=== PATIENT | female | born 1980 | race Caucasian/White ===

== ENCOUNTER 2016-12-19 08:36 | Inpatient (IN) | payer BC ==
--- NOTE | 2016-12-17 12:55 | HP ---
Admitting History and Physical - Primary Care Physician PCP: Nelson Chauhan - Admission Chief Complaint: high risk for breast cancer History of Present Illness: 36 yo female presents as a high risk patient for breast cancer sec to family hx and BRCA 1 and 2 positive results. Patient is presenting for bilateral mastectomy with immediate implant reconstruction. MRI and mammo done 10/2016 was normal. History Source: Patient Limitations to Obtaining History: No Limitations - Past Surgical History Past Surgical History: Yes: Breast Biopsy (left breast core bx 2013 (neg)) Home Medications - Allergies Allergies/Adverse Reactions: Allergies Allergy/AdvReac Type Severity Reaction Status Date / Time acetaminophen [From Endocet] Allergy Verified 12/17/16 12:51 oxycodone HCl [From Endocet] Allergy Verified 12/17/16 12:51 - Home Medications Home Medications (free text): MVI. probiotic. adrenal cortex (karmen). HPA axis (sinan). stress B complex (karmen). melatonin Family Disease History - Family Disease History Family Disease History: CA: Father (prostate cancer) Other Family History: maternal great GM-uterine cancer. maternal great aunt x 2 -ovarian cancer. maternal GM breast cancer. maternal aunt-breast cancer. maternal cousin-breast cancer,BRCA positive. paternal uncle- pancreatic cancer. paternal uncle- bladder cancer Physical Examination Constitutional: Yes: Well Nourished Breast(s): Yes: Other (bilateral breast without palpable masses or suspicious adenopathy noted) Problem List - Problems (1) Genetic susceptibility to breast cancer Code(s): Z15.01 - GENETIC SUSCEPTIBILITY TO MALIGNANT NEOPLASM OF BREAST (2) Family history of breast cancer Code(s): Z80.3 - FAMILY HISTORY OF MALIGNANT NEOPLASM OF BREAST (3) Family history of ovarian cancer Code(s): Z80.41 - FAMILY HISTORY OF MALIGNANT NEOPLASM OF OVARY Assessment/Plan Plan: bilateral mastectomy with implant reconstruction
[2016-12-17 17:32] VITALS: BMI 27.1
[2016-12-19] MEDS ORDERED: ceFAZolin SODIUM 1 GM VIAL ONE ×3 (08:39→14:43)
[2016-12-19] MEDS ORDERED: GENTAMICIN SO4 80 MG/2 ML VIAL ONE (08:39)
[2016-12-19] MEDS ORDERED: LIDOCAINE 1%-EPI 1:100,000 30 ML MDV IJ ONE (08:39)
[2016-12-19] MEDS ORDERED: GUM MASTIC/STORAX/MSAL/ALCOHOL 1 DRP DROPSBTL MC ONE (09:15)
[2016-12-19] MEDS ORDERED: SCOPOLAMINE HYDROBROMIDE 1 PATCH PATCH.TD72 ONE (09:43)
[2016-12-19] MEDS ORDERED: MIDAZOLAM HCL 2 MG/2 ML SINGLE DOSE VIAL ONE (09:43)
[2016-12-19] MEDS ORDERED: SEVOFLURANE 250 ML BTL ONE (09:53)
[2016-12-19] MEDS ORDERED: DESFLURANE GAS 240 ML BOTTLE IH ONE (09:53)
[2016-12-19] MEDS ORDERED: ACETAMINOPHEN INJECTION 100 ML IVPB ONE (09:53)
[2016-12-19] MEDS ORDERED: PROPOFOL 20 ML ONE ×8 (09:55→12:07)
[2016-12-19] MEDS ORDERED: ROCURONIUM BROMIDE 50 MG/5 ML VIAL ONE (09:56)
[2016-12-19] MEDS ORDERED: ONDANSETRON 4 MG/2 ML VIAL ONE (10:00)
[2016-12-19] MEDS ORDERED: DEXAMETHASONE SOD PHOSPHATE 4 MG/1 ML VIAL ONE (10:00)
[2016-12-19] MEDS ORDERED: MINERAL OIL/PETROLATUM,WHITE 3.5 GM TUBE ONE (10:07)
[2016-12-19] MEDS ORDERED: HYDROmorphone *PCA* 10MG/50ML DISP.SYRIN PCA ONE ×2 (10:28→15:29)
[2016-12-19] MEDS ORDERED: ACETAMINOPHEN 325 MG TABLET (FP) PO PRN (13:00)
[2016-12-19] MEDS ORDERED: ZOLPIDEM TARTRATE 5 MG TABLET PO PRN (13:00)
[2016-12-19] MEDS ORDERED: ONDANSETRON 4 MG/2 ML VIAL IVPB PRN (13:00)
--- NOTE | 2016-12-19 13:57 | OP ---
DATE OF OPERATION: 12/19/2016 PREOPERATIVE DIAGNOSIS: High risk for breast cancer, BRCA1 and BRCA2 positive. POSTOPERATIVE DIAGNOSIS: High risk for breast cancer, BRCA1 and BRCA2 positive. PROCEDURE: Bilateral total nipple-sparing mastectomies done through an inframammary incision with bilateral direct implant reconstruction placed over the muscle with AlloDerm. ANESTHESIA: General endotracheal anesthesia. PRIMARY SURGEON: Phyllis Chauhan MD MANAGER PART: GLEN Guallpa PRIMARY SURGEON FOR THE BILATERAL DIRECT IMPLANT RECONSTRUCTION: Phyllis Barry MD MANAGER PART: Marquita COMPLICATIONS: There were no complications. INDICATIONS: Briefly, the patient is a 36-year-old premenopausal white female with [place], [place], [place], and [place] heritage. She has a strong family history with her maternal grandmother who had bilateral breast cancer at age 35 and 62. She has a maternal aunt who had breast cancer at age 46. She has a maternal cousin who had breast cancer at age 33. She has 2 maternal great-aunts who had ovarian cancer in their 30s. A maternal great-grandmother had uterine cancer in her 50s. A paternal uncle had pancreatic cancer at age 45. Her father had prostate cancer. The patient ended up genetic testing and had both a BRCA1 and BRCA2 deleterious mutation. She was seen in consultation regarding bilateral nipple-sparing mastectomies for risk reduction. She understood the theoretical risk of leaving soft tissue underneath the nipple, but understood that we do retroareolar biopsy, and if those showed cancer, we would remove the nipples. She understood the lack of any evidence drawn from doing prophylactic sentinel lymph node biopsies. She was seen by Dr. Barry, our plastic surgeon, and she agreed to direct implant reconstruction and chose to have the implants placed on top of the muscle. DESCRIPTION OF PROCEDURE: The patient was brought in for the surgery on December 19, 2016. In the holding area, site verification was made, and informed consent was obtained. She was marked preoperatively by the plastic surgeon. She did sign consent for the nipple-sparing registry. She was brought into the operating room and laid on the OR table in the supine position. Venodynes were placed on the lower extremities prior to induction. She received 2 g of Ancef prior to incision. She was given general endotracheal anesthesia. Both breasts were sterilely prepped and draped in the usual fashion. Inframammary incisions were marked out bilaterally, about 9 cm in length and inframammary folds symmetrically bilaterally. The left mastectomy was first performed. Incision was made, and the skin edges were everted, and the breast was retracted inferiorly using Luc clamps. The flap was raised using the PEAK radiofrequency device superiorly to the level of the clavicle, medially to the level of the sternum, laterally to the level of the latissimus, and inferiorly to the level of the inframammary fold. The breast was taken down off the pectoralis major muscle using electrocautery from inferomedial to superolateral, completely removed intact. It was oriented with the long-lateral short-superior suture and weighed to allow for appropriate cosmetic result. Skin flaps were trimmed for good cosmetic result. A retroareolar biopsy was taken underneath the left nipple areolar complex and came back negative, so the left nipple was spared. Hemostasis was achieved, and the wound was copiously irrigated. At this point, the right mastectomy was performed again through an inframammary approach about 9 cm in length. The skin edges were everted, and the breast tissue retracted inferiorly using Thedford clamps. The skin flap was raised using the PEAK radiofrequency device superiorly to the level of the clavicle, medially to the level of the sternum, laterally to the level of the latissimus, and inferiorly above the level of the inframammary fold. The breast was taken down off the pectoralis major muscle using electrocautery from inferomedial to superolateral and completely removed intact. It was oriented with the long-lateral short-superior suture and weighed to allow for appropriate cosmetic result. Skin flaps were trimmed again for good cosmetic result. A retroareolar biopsy was taken underneath the right nipple areolar complex, sent for frozen section, and came back negative, so the right nipple was spared, as well. The wound was copiously irrigated, and hemostasis was achieved. At this point, Dr. Barry became the primary surgeon and performed bilateral direct implant reconstruction above the muscle. AlloDerm was used to cover the implants bilaterally. Two Dalton drains were placed around each implant, brought through separate stab incisions on the lateral skin flaps, and secured in place using 3-0 nylon suture. All wounds were closed separately by plastic surgery using interrupted 3-0 deep dermal PDS suture and a running 4-0 subcuticular PDS suture. Mastisol and Steri-Strips were tied over the wounds, and she will be placed in a surgical bra postoperatively. The patient will be extubated and brought to the post-anesthesia care unit. She will be placed on a WIRE WEAVER CLOTH for postoperative pain control. She will be admitted postoperatively for pain and wound management. All sponge and needle counts were correct at the end of the case. Estimated blood loss was about 150 mL. She was hemodynamically stable throughout. We did use the SPY Skin Perfusion Device at the end of the mastectomies and after the reconstructions, and she had good perfusion seen on the SPY intraoperative skin angiography. PHYLLIS CHAUHAN M.D. [id number]
[2016-12-19] MEDS ORDERED: ceFAZolin SODIUM 1 GM VIAL IVPB ONE (14:55)
[2016-12-19] MEDS: CEFAZOLIN 1 GM/D5W 50 ML IVPB SCH ×2 (17:00→20:48)
[2016-12-19] MEDS: DEXTROSE 5%-0.45% SALINE 1,000 ML IV SCH (17:00)
[2016-12-19] MEDS: HYDROmorphone *PCA* 10MG/50ML DISP.SYRIN PCA SCH (17:00)
[2016-12-20] MEDS: CEFAZOLIN 1 GM/D5W 50 ML IVPB SCH ×4 (02:08→21:14)
[2016-12-20 08:44] LABS: MCHC 32.5 g/dl (32.0-36.0); MEAN CELL VOLUME 92.2 fl (80-96); MEAN PLT VOLUME 10.4 fl (7.5-11.1); PLATELET COUNT 162 K/MM3 (134-434)
--- NOTE | 2016-12-20 09:33 | PN ---
Progress Note, Physician Chief Complaint: S/P bilateral mastectomy with implant reconstruction POD#1 History of Present Illness: Patient doing well this am. Ensign a bit dizzy when going to the bathroom but otherwise reports good pain control. Tolerating po well. - Current Medication List Current Medications: Active Medications Acetaminophen (Tylenol -) 650 mg PO Q4H PRN PRN Reason: FEVER Hydromorphone HCl (Dilaudid Hides Inspector -) 10 mg FRONT MAN FRONT MAN MANGO PRN Reason: Protocol Stop: 12/22/16 08:33 Last Admin: 12/19/16 17:00 Dose: Not Given Cefazolin Sodium (Ancef 1 Gm Premixed Ivpb -) 50 mls @ 100 mls/hr IVPB Q6H-IV MANGO Stop: 12/26/16 14:59 Last Admin: 12/20/16 02:08 Dose: 100 mls/hr Dextrose/Sodium Chloride (D5-1/2ns -) 1,000 mls @ 100 mls/hr IV ASDIR MANGO Last Admin: 12/19/16 17:00 Dose: Not Given Ondansetron HCl (Zofran Injection) 4 mg IVPB Q6H PRN PRN Reason: NAUSEA AND/OR VOMITING Zolpidem Tartrate (Ambien -) 5 mg PO HS PRN PRN Reason: Insomnia - Objective Vital Signs: Vital Signs Temperature 98.4 F 12/20/16 05:00 Pulse Rate 60 12/20/16 05:00 Respiratory Rate 17 12/20/16 05:00 Blood Pressure 106/52 12/20/16 05:00 O2 Sat by Pulse Oximetry (%) 100 12/20/16 06:06 Constitutional: Yes: Well Nourished, No Distress Breast(s): Yes: Other (bilateral flaps with with left more than right ecchymosis noted. The nipple/areola complex pink. INES X 4 with serosanginous discharge) Labs: CBC, BMP 12/20/16 07:00 Problem List - Problems (1) Genetic susceptibility to breast cancer Code(s): Z15.01 - GENETIC SUSCEPTIBILITY TO MALIGNANT NEOPLASM OF BREAST (2) Family history of breast cancer Code(s): Z80.3 - FAMILY HISTORY OF MALIGNANT NEOPLASM OF BREAST (3) Family history of ovarian cancer Code(s): Z80.41 - FAMILY HISTORY OF MALIGNANT NEOPLASM OF OVARY Assessment/Plan Plan: DC FRONT MAN in the pm and transition to po meds Continue axbx Teach INES monitoring Plan for discharge in am
[2016-12-20] MEDS: HYDROmorphone *PCA* 10MG/50ML DISP.SYRIN PCA SCH (09:38)
[2016-12-20] MEDS ORDERED: DOCUSATE SODIUM 100 MG CAPSULE (FP) PO PRN (09:51)
--- NOTE | 2016-12-20 10:17 | PN ---
HC Provider Note (SOAP) Subjective: Post op day#1.S/P Bilateral mastectomy under GA uneventful. Objective: Patinet stable. Assesment: Patient c/o pain score of 2/10 on Dilaudid WATER POLLUTION SCIENTIST. Plan: Will Dc WATER POLLUTION SCIENTIST and put patient on po pain medication.
[2016-12-20] MEDS: DEXTROSE 5%-0.45% SALINE 1,000 ML IV SCH (13:16)
[2016-12-20] MEDS: ACETAMINOPHEN WITH CODEINE 300MG/30MG TABLET PO PRN ×3 (13:16→23:09)
[2016-12-21] MEDS: CEFAZOLIN 1 GM/D5W 50 ML IVPB SCH ×2 (02:36→08:04)
[2016-12-21] MEDS: ACETAMINOPHEN WITH CODEINE 300MG/30MG TABLET PO PRN ×2 (03:42→08:28)
[2016-12-21 06:25] VITALS: BP 93/47; PULSE 56; TEMP 99.1
--- NOTE | 2016-12-21 09:53 | DS ---
Physical Examination Vital Signs: Vital Signs Temperature 99.1 F 12/21/16 06:00 Pulse Rate 56 L 12/21/16 06:00 Respiratory Rate 18 12/21/16 09:00 Blood Pressure 93/47 12/21/16 06:00 O2 Sat by Pulse Oximetry (%) 97 12/21/16 09:00 Constitutional: Yes: Well Nourished, No Distress Wound/Incision: Yes: Dressing Dry and Intact, Other (Slight ecchymosis bilateral breasts; JPs functioning, serosanguineous effluent) Labs: CBC, BMP 12/20/16 07:00 Discharge Summary Reason For Visit: GENETIC SUSCEPTIBILITY Current Active Problems Family history of breast cancer (Acute) Family history of ovarian cancer (Acute) Genetic susceptibility to breast cancer (Acute) Procedures: Principal: Bilateral nipples sparing mastectomies with direct implant reconstruction Hospital Course: Patient remained stable during the hospital course Pain well controlled Condition: Good - Instructions Diet, Activity, Other Instructions: Resume regular diet Drain JPs and monitor output No showering until drains are removed Call office to schedule a follow up appointment Disposition: HOME - Home Medications Comprehensive Discharge Medication List: Ambulatory Orders L. Acidophilus/L. Rhamnosus [Probiotic 15 Billion Cell Cap] 1 each PO DAILY Multivitamins [Tab-A-Vit -] 1 tab PO DAILY 12/17/16
--- NOTE | 2016-12-25 11:20 | PATH ---
Surgical Pathology Report Patient Name: GAYLA ALMONTE Med. Rec. #: [id number] /Age/Gender: 1980 (Age: 36) / F Account: [id number] Location: [facility] MED-SURG Taken: 12/19/2016 Received: 12/19/2016 Reported: 12/25/2016 Physicians: Nelson Chauhan M.D. Specimen(s) Received A: LEFT RETROAREOLAR BX (FS) B: RIGHT RETROAREOLAR BX (FS) C: LEFT MASTECTOMY D: RIGHT MASTECTOMY Clinical History BRCA-1 & 2 + Bilateral prophylactic mastectomy Intraoperative Consult Diagnosis A. Left retroareolar biopsy, frozen section: No carcinoma identified. B. Right retroareolar biopsy, frozen section: No carcinoma identified. Dr. Renee, 12/19/2016. Final Diagnosis A. RETROAREOLA, LEFT, BIOPSY (FS): BENIGN BREAST TISSUE. NEGATIVE FOR MALIGNANCY. B. RETROAREOLA, RIGHT, BIOPSY (FS): BENIGN BREAST TISSUE. NEGATIVE FOR MALIGNANCY. C. BREAST, LEFT, NIPPLE-SPARING MASTECTOMY: BENIGN BREAST TISSUE SHOWING FIBROCYSTIC CHANGES, FOCAL NODULAR APOCRINE ADENOSIS AND SECRETORY CHANGES. D. BREAST, RIGHT, NIPPLE-SPARING MASTECTOMY: DUCTAL CARCINOMA IN SITU (DCIS), SOLID TYPE, INTERMEDIATE NUCLEAR GRADE WITH LOBULAR EXTENSION. (SEE NOTE) DCIS IS PRESENT PREDOMINANTLY IN THE LOWER INNER QUADRANT (LIQ) AND FOCALLY IN THE UPPER INNER QUADRANT (UIQ). DCIS IS PRESENT IN FIVE OF TWENTY-THREE SLIDES (5/23), WITH THE LARGEST CONTIGUOUS FOCUS OF DCIS MEASURING 4 MM IN GREATEST DIMENSION, MICROSCOPICALLY. SURGICAL MARGINS ARE UNINVOLVED BY DCIS; DCIS IS AT 2 MM FROM THE CLOSEST ANTERIOR AND DEEP MARGINS. REMAINING BREAST TISSUE SHOWS FIBROCYSTIC CHANGES AND SECRETORY CHANGES. PATHOLOGIC STAGE (p TNM): pTis (DCIS) pNx. SEE ALSO DCIS CASE SUMMARY BELOW. Note: The foci of DCIS are positive for E-Cadherin (performed on blocks D8 & D13), which supports ductal phenotype. Case discussed with Dr.Andrew Chauhan on 12/25/16. Comments DCIS of Breast: Surgical Pathology Cancer Case Summary Based on AJCC/UICC TNM, 7th edition Procedure _X_ Nipple-sparing mastectomy Specimen Laterality _X_ Right Estimated size (extent) of DCIS (greatest dimension using gross and microscopic evaluation): at least 4 mm and: Number of blocks with DCIS: 5 Number of blocks examined: 23 Nuclear Grade _X_ Grade II (intermediate) Necrosis _X_ Present, focal (small foci or single cell necrosis) Microcalcifications _X_ Not identified Margins _X_ Margin(s) uninvolved by DCIS Distance from closest margin: 2 mm from anterior and deep margin Pathologic Staging (pTNM) Primary Tumor (pT) _X_ pTis (DCIS): Ductal carcinoma in situ Biomarker Studies Results of ER and OK studies will be reported separately in an addendum. Electronically Signed Talisha Riley M.D. Addendum Reported: 12/25/2016 Addendum Diagnosis Results of ER and OK studies performed on block D17 at [facility] are as follows: ER (clone [id number] mouse monoclonal antibody by Leica) : >90 % nuclear staining with strong intensity (Positive). OK (clone16 mouse monoclonal antibody by Leica): >90 % nuclear staining with strong intensity (Positive). Positive and negative controls (internal if applicable) show appropriate results. Formalin fixation and cold ischemic times are within current ASCO/CAP recommendations for ER, OK and Her2 testing. Talisha Riley M.D. Gross Description A. Received fresh for frozen section, labeled "left retroareolar biopsy" is a 0.9 x 0.6 x 0.2 cm fragment of chang-pink soft tissue. The specimen is submitted entirely for frozen section. Frozen section residue is submitted in one cassette. B. Received fresh for frozen section, labeled "right retroareolar biopsy" is a 1.2 x 0.3 x 0.2 cm fragment of chang-pink soft tissue. The specimen is submitted entirely for frozen section. Frozen section residue is submitted in one cassette. C. Received in formalin, labeled "left mastectomy," is a 397 gram, 16.0 x 14.0 x 4.3 cm. left mastectomy specimen with a short suture marking the superior aspect and a long suture marking the lateral aspect of the specimen, per the surgeon. There is no skin or nipple present. The deep margin is inked black and the anterior soft tissue margin is inked blue. The specimen is serially sectioned from medial to lateral. Sectioning reveals diffuse dense, white fibrous tissue with dilated ducts. Goal Umpire sections are submitted in 14 cassettes as follows: 1-3-upper outer quadrant; 4-6-lower outer quadrant; 7-9-upper inner quadrant; 10-12-lower inner quadrant; 13-anterior soft tissue margin; 14-deep margin. Time to formalin fixation: 50 minutes Total formalin fixation time: Approximately 29 hours. D. Received in formalin, labeled "right mastectomy," is a 355 gram, 16.0 x 12.0 x 4.0 cm. right mastectomy specimen with a short suture marking the superior aspect and a long suture marking the lateral aspect of the specimen, per the surgeon. There is no skin or nipple present. The deep margin is inked black and the anterior soft tissue margin is inked blue. The specimen is serially sectioned from lateral to medial. Sectioning reveals diffuse dense, white fibrous tissue. Goal Umpire sections are submitted in 23 cassettes as follows: 1-3-upper outer quadrant; 4-6-lower outer quadrant; 7-9-upper inner quadrant; 10-12-lower inner quadrant; 13-anterior soft tissue margin; 14-deep margin. Additional tissue: 15-21-lower inner quadrant; 22-23-upper outer quadrant Time to formalin fixation: 57 minutes Total formalin fixation time: Approximately 29 hours. AF12/19/2016 final12/19/2016
--- NOTE | 2016-12-25 20:44 | OP ---
DATE OF OPERATION: 12/19/2016 PREOPERATIVE DIAGNOSES: 1. Bilateral acquired chest wall deformity status post bilateral mastectomy (611.89). 2. Personal history of genetic carcinoma. POSTOPERATIVE DIAGNOSES: 1. Bilateral acquired chest wall deformity status post bilateral mastectomy (611.89). 2. Personal history of genetic carcinoma. PROCEDURE: 1. Right immediate breast reconstruction utilizing immediate insertion of silicone breast implant and AlloDerm reconstruction. 2. Left immediate breast reconstruction utilizing immediate insertion of silicone breast implant and AlloDerm reconstruction. 3. Intravenous injection of isocyanide green dye and intraoperative diagnostic evaluation of non-coronary intraoperative fluorescein vascular angiography x 2. SURGEON: Dr. Gayla Barry OPERATIVE PROCEDURE IN DETAIL: The patient was taken to the operating room. After induction of general anesthesia in the supine position, both arms were extended and padded. Venodyne boots were placed. The entire chest wall was painted with ChloraPrep solution over its entire extent, and sterile drapes were placed in the usual fashion. The markings, which had been made in the standing position preoperatively, were reoutlined with the patient's knowledge. Time-out procedure was performed. Attention was turned by Dr. Chauhan to the mastectomies. Bilateral inframammary incisions were made and Dr. Chauhan performed mastectomies. This will be dictated under separate cover. Upon completion of the mastectomies, the wounds were copiously irrigated and attention was turned to the right breast. A subpectoral dissection was begun on the right breast, superiorly from the second rib, medially to the sternal fibers, and down to the inframammary fold, elevating the pectoralis major muscle from its insertion. At this point, an 8.0 x 16.0 sheet of AlloDerm was brought into the field and sutured superiorly along the pectoralis major muscle after rehydration. This was carried along the lateral mammary fold and down the side of the breast reconstruction. At this point, a Natrelle Inspira SCF implants placed bilaterally. She tolerated the procedure well. The SPY intraoperative angiogram implant was chosen. The left breast tissue removed was 371 gm, and the right breast approximately 482 gm. This implant was placed and then sutured with 3-0 Vicryl suture continued along the inframammary fold, completely covering the implant itself. The exact same procedure was carried out symmetrically on the opposite breast, also placing a Natrelle Inspira SCF implant in the same subpectoral pocket. Good symmetry was seen in the sitting position. After the implants were in place, the patient was injected with 10 mL of Isocyanide green dye and the Spy imaging system was brought into the field. The skin flowed to the right and left breasts and the nipple areolar complex, and the entire skin flaps were evaluated and seen to be viable with good blood flow. Two Cedrick-Jarquin drains were brought out through separate stab wounds laterally. The Smart Infuser pump catheter was inserted medially and into the subpectoral position. Both wounds were closed symmetrically using 3-0 PDS suture on the deep tissue, 3-0 in a deep dermal fashion, and 4-0 in a subcuticular fashion. Both wounds were dressed sterilely with Mastisol and Steri-Strips with a surgical bra and a compression strap. The patient tolerated the procedure well. She was awakened, extubated and transferred to the recovery room in satisfactory condition. The public services assistant was present during the entire portion of the operation and closure. PHYLLIS BARRY M.D. [id number]
== END 2016-12-21 11:50 | disposition home or self-care (01) | DRG 585 ==
LOC: FM/S 08:36
PROVIDERS: ADMIT Surgery Surgical Oncology; ATTEND Surgery Surgical Oncology
PROC: 0HTV0ZZ Resection of Bilateral Breast, Open Approach (ICD-10-PCS; principal; 2016-12-19 10:35)
PROC: 0HRV0JZ Replacement of Bilateral Breast with Synthetic Substitute, Open Approach (ICD-10-PCS; 2016-12-19 10:35)
DX: Z40.01 Encounter for prophylactic removal of breast (principal); Z80.3 Family history of malignant neoplasm of breast; Z80.41 Family history of malignant neoplasm of ovary
CPT/HCPCS: 36415; 84703; 85027; 88307-TC; 88331-TC; 94760